=== PATIENT | male | born 1990 | race Caucasian/White ===

== ENCOUNTER → 2017-04-28 | Outpatient (CLI) | payer BC ==
[2017-04-28 19:48] LABS: Cholesterol 117 mg/dL (<200); HDL Cholesterol 73 mg/dL (40-60); Triglycerides 58 mg/dL (<150)
== END | disposition home or self-care (01) ==
LOC: MMGSC 08:41
PROVIDERS: ATTEND Family Medicine
DX: Z00.00 Encounter for general adult medical examination without abnormal findings (principal)
CPT/HCPCS: 36415; 80061